=== PATIENT | male | born 1990 | race Caucasian/White ===

== ENCOUNTER 2017-12-30 08:25 | Emergency (ER) | END 2017-12-30 13:30 | disposition home or self-care (01) ==

== ENCOUNTER 2018-02-21 18:36 | Emergency (ER) | END 2018-02-21 23:12 | disposition home or self-care (01) ==

== ENCOUNTER 2018-02-22 11:04 | Emergency (ER) | END 2018-02-22 12:51 | disposition home or self-care (01) ==

== ENCOUNTER 2018-09-23 14:00 | Emergency (ER) | payer MEDICAID ==
[~2018-09-23] VITALS: Wt 75.0 kg
[~2018-09-23 14:00] MED LIST: DICY10CA40 PO; LORA1TAB PO; ONDA4TAB14 PO
[2018-09-23 14:02] VITALS: BP 134/77; PULSE 104; RESP 18
--- NOTE | 2018-09-23 14:53 | ERD ---
ER Documentation Chief Complaint Chief Complaint DIZZINESS/LIGHTHEADED X 3 MONTHS HPI 27-year-old male presents the emergency department complaining of dizziness and lightheadedness. Patient states that for over a year, he has had multiple episodes of feeling "like I might have a seizure. Is never actually had a seizure. He states he occasionally feels dizzy and lightheaded. Is never lost consciousness. He reports no headache, focal weakness or numbness. He reports no chest pain or palpitations. He does state that he feels anxious sometimes. He is been evaluated multiple times in our emergency department for similar complaints with a nondiagnostic but otherwise normal workup. ROS All systems reviewed and are negative except as per history of present illness. Medications Home Meds Active Scripts Lorazepam* (Lorazepam*) 1 Mg Tablet, 1 MG PO Q8, #10 TAB Prov:BRYANNA CARTER 02/22/18 Lorazepam* (Lorazepam*) 1 Mg Tablet, 1 MG PO Q8, #10 TAB Prov:HOLDEN CLEMENTS PA-C 12/30/17 Ondansetron (Ondansetron Odt) 4 Mg Tab.rapdis, 4 MG PO Q6H PRN for NAUSEA AND/OR VOMITING, #10 TAB Prov:HOLDEN CLEMENTS PA-C 12/30/17 Dicyclomine HCl (Dicyclomine HCl) 10 Mg Capsule, 1 CAP PO Q8 for 3 Days Prov:HOLDEN CLEMENTS PA-C 12/30/17 Allergies Allergies: Coded Allergies: No Known Allergy (Unverified , 02/21/18) PMhx/Soc History of Surgery: Yes Hx Neurological Disorder: Yes Hx Respiratory Disorders: Yes Hx Cardiac Disorders: Yes Hx Psychiatric Problems: Yes Hx Miscellaneous Medical Probl: Yes Hx Alcohol Use: Yes (OCCASIONAL) Hx Substance Use: Yes ([facility]) Hx Tobacco Use: No Smoking Status: Never smoker FmHx Noncontributory for chief complaint Physical Exam Vitals Vital Signs Date Temp Pulse Resp B/P (MAP) Pulse Ox O2 O2 Flow FiO2 Time Delivery Rate 09/23/18 99.0 104 18 134/77 99 14:02 (96) Physical Exam GENERAL: The patient is well developed and appropriate for usual state of health in no apparent distress HEENT: Pupils equal, round, and reactive to light. EOMI. There is no scleral icterus. NECK: C-spine is soft and supple, there is no meningismus. There is no cervical lymphadenopathy. LUNGS: Clear to auscultation bilaterally. There are no rales, wheezes or rhonchi. HEART: Regular rate and rhythm, no murmurs, clicks, rubs or gallops. ABDOMEN: Soft, non-tender, non-distended. There are bowel sounds in all four quadrants. No rebound or guarding. EXTREMITIES: There is no peripheral cyanosis or edema. No focal swelling or erythema. NEURO: The patient moves all four extremities with 5/5 strength. Cranial nerves II - XII are intact. Normal gait. Alert and oriented SKIN: There is no apparent rash or petechiae. HEME/LYMPHATIC: There is no evidence of excessive bruising or lymphedema. PSYCHIATRIC: Patient appears anxious. Normal mental status. No agitation. Procedures/MDM Patient was taken to a room, seen and examined Medical decision makin-year-old male presents with nonspecific dizziness in the setting of fairly significant anxiety. He states he is no longer using cocaine. He has no evidence of neurologic dysfunction and no evidence of any other neurologic or other high-risk concerns. Overall, patient is clinically well after reassurance and seems appropriate for outpatient care. Departure Diagnosis: Primary Impression: Anxiety Additional Impression: Dizziness Condition: Stable Patient Instructions: Your Body's Response to Anxiety, Dizziness, Unk Cause Referrals: [facility] YOU HAVE RECEIVED A MEDICAL SCREENING EXAM AND THE RESULTS INDICATE THAT YOU DO NOT HAVE A CONDITION THAT REQUIRES URGENT TREATMENT IN THE EMERGENCY DEPARTMENT. FURTHER EVALUATION AND TREATMENT OF YOUR CONDITION CAN WAIT UNTIL YOU ARE SEEN IN YOUR DOCTORS OFFICE WITHIN THE NEXT 1-2 DAYS. IT IS YOUR RESPONSIBILITY TO MAKE AN APPOINTMENT FOR FOLOW-UP CARE. IF YOU HAVE A PRIMARY DOCTOR --you should call your primary doctor and schedule an appointment IF YOU DO NOT HAVE A PRIMARY DOCTOR YOU CAN CALL OUR PHYSICIAN REFERRAL HOTLINE AT IF YOU CAN NOT AFFORD TO SEE A PHYSICIAN YOU CAN CHOSE FROM THE FOLLOWING [facility]ICAL [facility]ESS [facility] CLINICS [facility] [address] [facility] [address] [facility] [address] [facility] [address] [facility] [id number] [facility] [facility]. [address] Sep 23, 2018 14:53
== END 2018-09-23 15:30 | disposition left against medical advice (07) ==
LOC: FTE 14:00
DX: F41.9 Anxiety disorder, unspecified (principal)
CPT/HCPCS: 99282